=== PATIENT | male | born 1995 | race African-American/Black ===

== ENCOUNTER 2017-05-25 21:42 | Emergency (ER) | payer OTHER ==
[2017-05-25 21:43] VITALS: BP 159/92; PULSE 97; RESP 16; TEMP 98; O2SAT 99
--- NOTE | 2017-05-25 22:03 | PD ---
HPI Chief Complaint: Cold / Flu Symptoms Time Seen by Provider: 22:03 Travel History International Travel<30 days: No Contact w/Intl Traveler<30days: No Traveled to known affect area: No History of Present Illness HPI This is a 21-year-old male with no significant past medical history presents for evaluation. For the past 2 months the patient has had coughing, sneezing, congestion. Initially the symptoms resolved but now over the past month he has had consistent symptoms. Over the past week he has developed myalgias. He has tried numerous [id number] cough and cold medications, antihistamines, but symptoms persist which prompted evaluation. He reports that tonight during a particularly forceful coughing episode he had some posttussive emesis. Denies rash or recent travel. No sick contacts. Denies abdominal pain. No other complaints. [facility] Social History Alcohol Use: No Tobacco Use: No Allergies-Medications (Allergen,Severity, Reaction): Coded Allergies: No Known Allergies (Unverified , 05/25/17) Reported Meds & Prescriptions Reported Meds & Active Scripts Active Flonase Nasal [place] (Fluticasone Nasal [place]) 50 Mcg/Act [place] 100 Mcg EACH NARE BID 10 Days Azithromycin 250 Mg Tab 250 Mg PO DIRECTED Take 2 tabs (500 mg) on day 1 then 1 tab daily x 4 days. Review of Systems Except as stated in HPI: all other systems reviewed are Neg Physical Exam Narrative GENERAL: Well-nourished male in no acute distress. He is coughing and sneezing during examination. SKIN: Warm and dry. HEAD: Atraumatic. Normocephalic. EYES: Pupils equal and round. No scleral icterus. No injection or drainage. ENT: No nasal bleeding or discharge. Mucous membranes pink and moist. NECK: Trachea midline. No JVD. CARDIOVASCULAR: Regular rate and rhythm. No murmur appreciated. RESPIRATORY: No accessory muscle use. Clear to auscultation. Breath sounds equal bilaterally. GASTROINTESTINAL: Abdomen soft, non-tender, nondistended. Hepatic and splenic margins not palpable. MUSCULOSKELETAL: No obvious deformities. No clubbing. No cyanosis. No edema. NEUROLOGICAL: Awake and alert. No obvious cranial nerve deficits. Motor grossly within normal limits. Normal speech. PSYCHIATRIC: Appropriate mood and affect; insight and judgment normal. Data Data Last Documented VS Vital Signs Date Time Temp Pulse Resp B/P (MAP) Pulse Ox O2 Delivery O2 Flow Rate FiO2 05/25/17 21:43 98.0 97 16 159/92 (114) 99 Room Air Orders Orders Influenzae A/B Antigen (05/25/17 22:01) Complete Blood Count With Diff (05/25/17 22:01) Basic Metabolic Panel (Bmp) (05/25/17 22:01) Chest, Single Ap (05/25/17 ) Lidocaine Pf 2% Neb (Lidocaine Pf 2% Neb (05/25/17 22:15) Benzonatate (Tessalon) (05/25/17 22:15) Diphenhydramine (Benadryl) (05/25/17 22:15) Oxymetazoline 0.05% Melquiades [place] (Afrin 0.0 (05/25/17 22:15) Albuterol-Ipratropium Neb (Duoneb Neb) (05/25/17 22:30) Labs Laboratory Tests Test 05/25/17 22:25 White Blood Count 7.0 TH/MM3 Red Blood Count 5.25 MIL/MM3 Hemoglobin 16.2 GM/DL Hematocrit 45.5 % Mean Corpuscular Volume 86.8 FL Mean Corpuscular Hemoglobin 30.8 PG Mean Corpuscular Hemoglobin Concent 35.5 % Red Cell Distribution Width 12.7 % Platelet Count 256 TH/MM3 Mean Platelet Volume 9.1 FL Neutrophils (%) (Auto) 42.6 % Lymphocytes (%) (Auto) 41.9 % Monocytes (%) (Auto) 11.2 % Eosinophils (%) (Auto) 3.6 % Basophils (%) (Auto) 0.7 % Neutrophils # (Auto) 3.0 TH/MM3 Lymphocytes # (Auto) 3.0 TH/MM3 Monocytes # (Auto) 0.8 TH/MM3 Eosinophils # (Auto) 0.3 TH/MM3 Basophils # (Auto) 0.0 TH/MM3 CBC Comment DIFF FINAL Differential Comment Blood Urea Nitrogen 14 MG/DL Creatinine 1.28 MG/DL Random Glucose 87 MG/DL Calcium Level 9.1 MG/DL Sodium Level 139 MEQ/L Potassium Level 4.2 MEQ/L Chloride Level 106 MEQ/L Carbon Dioxide Level 24.3 MEQ/L Anion Gap 9 MEQ/L Estimat Glomerular Filtration Rate 85 ML/MIN MDM Medical Decision Making Medical Screen Exam Complete: Yes Emergency Medical Condition: Yes Medical Record Reviewed: Yes Differential Diagnosis Bronchitis, allergic rhinitis, sinusitis, pertussis, bronchiectasis, pneumonia, influenza, tuberculosis Narrative Course 21-year-old male with 2 months of cough, congestion, sneezing. On examination he is sneezing and coughing quite forcefully. He will be given a treatment of nebulized lidocaine for cough suppression purposes. He will also be given Tessalon, Afrin, Benadryl for symptom relief. Chest x-ray is normal. Influenza antigen is negative, CBC and BMP are within normal limits. Upon examination he feels improved. The patient will be discharged with prescription for Tessalon, azithromycin, Flonase. Recommended jeki-hfr-tefbzjg antihistamines on a daily basis and follow-up with primary care physician if symptoms persist. Diagnosis Primary Impression: Bronchitis Additional Impression: Rhinitis Additional Instructions: Medication as prescribed. Use ozgf-[id number] antihistamines such as Jennifer, Claritin, or Zyrtec on a daily basis. Follow-up with primary care physician in one to 2 weeks. Return for any emergent medical conditions. Med/Other Pt SpecificInfo: Prescription(s) given Scripts Benzonatate (Tessalon Perles) 100 Mg Cap 200 MG PO TID Y for COUGH, #30 CAP 0 Refills Prov: Raquel Thibodeaux MD 05/25/17 Fluticasone Nasal [place] (Flonase Nasal [place]) 50 Mcg/Act [place] 100 MCG EACH NARE BID for Allergies for 10 Days, #1 BOTTLE 0 Refills Prov: Raquel Thibodeaux MD 05/25/17 Azithromycin (Azithromycin) 250 Mg Tab 250 MG PO DIRECTED for Infection, #6 TAB 0 Refills Take 2 tabs (500 mg) on day 1 then 1 tab daily x 4 days. Prov: Raquel Thibodeaux MD 05/25/17 Disposition: 01 DISCHARGE HOME Condition: Stable Surjit Cardoza May 25, 2017 22:03
[2017-05-25] MEDS ORDERED: RESP: LIDOCAINE HCL 2% 2 ML NEB NEB ONE (22:15)
[2017-05-25] MEDS ORDERED: OXYMETAZOLINE HCL 0.05% 15 ML NASAL SPRAY NASAL ONE (22:15)
[2017-05-25] MEDS ORDERED: BENZONATATE 100 MG CAP PO ONE (22:15)
[2017-05-25] MEDS ORDERED: diphenhydrAMINE HCL 50 MG CAP PO ONE (22:15)
[2017-05-25] MEDS ORDERED: CEPH-460 PO (22:17)
[2017-05-25] MEDS ORDERED: FLUC150T PO (22:17)
[2017-05-25] MEDS ORDERED: BACT800T5 PO (22:17)
--- NOTE | 2017-05-25 22:29 | RADRPT ---
EXAM DATE/TIME: 05/25/2017 22:21 [facility] COMPARISON: No previous studies available for comparison. INDICATIONS : Cough, shortness of breath, congestion, and chest pain. MEDICAL HISTORY : None. SURGICAL HISTORY : None. ENCOUNTER: Initial ACUITY: 2 months PAIN SCORE: 8/10 LOCATION: chest FINDINGS: A single view of the chest demonstrates the lungs to be symmetrically aerated without evidence of mas s, infiltrate or effusion. The cardiomediastinal contours are unremarkable. Osseous structures are intact. CONCLUSION: 1. No acute cardiopulmonary disease. Arnol Tilley MD on May 25, 2017 at 22:27 Board Certified Radiologist. This report was verified electronically.
[2017-05-25] MEDS ORDERED: RESP: ALBUTEROL 2.5 MG/IPRATROPIUM 0.5 MG NEB (SCH) INH ONE (22:30)
[2017-05-25 22:39] LABS: BASOPHIL % 0.7 % (0.0-2.0); EOSINOPHIL # 0.3 TH/MM3 (0-0.4); EOSINOPHIL % 3.6 % (0.0-4.0); HEMATOCRIT 45.5 % (39.0-51.0); HEMOGLOBIN 16.2 GM/DL (13.0-17.0); LYMPH % 41.9 % (9.0-44.0); MEAN CELL VOLUME 86.8 FL (80.0-100.0); MEAN CORPUSCULAR HEMOGLOBIN 30.8 PG (27.0-34.0); MEAN CORPUSCULAR HGB CONC 35.5 % (32.0-36.0); MEAN PLATELET VOLUME 9.1 FL (7.0-11.0); MONO % 11.2 % (0.0-8.0); MONOCYTE # 0.8 TH/MM3 (0-0.9); NEUT % 42.6 % (16.0-70.0); PLATELET COUNT 256 TH/MM3 (150-450); RED BLOOD COUNT 5.25 MIL/MM3 (4.50-5.90); RED CELL DISTRIBUTION WIDTH 12.7 % (11.6-17.2)
[2017-05-25 23:06] LABS: BICARBONATE 24.3 MEQ/L (21.0-32.0); CALCIUM 9.1 MG/DL (8.5-10.1); CREATININE 1.28 MG/DL (0.60-1.30)
[2017-05-25] MEDS ORDERED: FLUT1SPR5 EACH NARE (23:16)
[2017-05-25] MEDS ORDERED: AZIT250T3 PO (23:16)
[2017-05-25] MEDS ORDERED: BENZ100 PO (23:16)
== END 2017-05-25 23:37 | disposition home or self-care (01) ==
LOC: NEPD 21:42
DX: J40 Bronchitis, not specified as acute or chronic (principal); J31.0 Chronic rhinitis
CPT/HCPCS: 71010; 80048; 85025; 87804; 94640; 94664; 99284; Q0163

== ENCOUNTER 2017-07-29 10:21 | Emergency (ER) | payer OTHER ==
[~2017-07-29] VITALS: Ht 175.3 cm; Wt 79.5 kg
[~2017-07-29 10:21] MED LIST: AZIT250T3 PO; BENZ100 PO; FLUT1SPR5 EACH NARE
[2017-07-29 10:27] VITALS: BP 108/92; PULSE 90; RESP 18; TEMP 99.3; O2SAT 99
[2017-07-29] MEDS ORDERED: GABA300C5 PO (11:28)
[2017-07-29] MEDS ORDERED: BUSP10TA PO (11:28)
[2017-07-29] MEDS ORDERED: ZOLO50TA PO (11:28)
[2017-07-29] MEDS ORDERED: AMLO5 PO (11:28)
[2017-07-29 11:32] LABS: BILIRUBIN, URINE NEG (NEG); BLOOD, URINE NEG (NEG); GLUCOSE,URINE NEG (NEG); KETONE, URINE NEG (NEG); MUCUS URINE FEW /lpf (OCC); NITRITE,URINE NEG (NEG); URINE COLOR YELLOW (YELLW/STRAW); URINE LEUKOCYTE ESTERASE NEG (NEG)
--- NOTE | 2017-07-29 11:50 | PD ---
HPI Chief Complaint: Complaint Time Seen by Provider: 11:34 Travel History International Travel<30 days: No Contact w/Intl Traveler<30days: No Traveled to known affect area: No History of Present Illness HPI 21-year-old -[place] male, who is a retired disabled presents emergency department with 8 month history of left breast lump which is gotten progressively worse in that time. He states no erythema, discharge, or drainage. Patient has also noted urinary dribbling at the beginning and end when he urinates. He denies dysuria or discharge. He reports symptoms of ED for the past 2 weeks. Patient states history of PTSD for which he takes multiple meds. [facility] 2 [facility] ago. He denies fever, chills, or other symptoms. He denies testicular pain. He denies risks of STD. He has no other symptoms. He has no known drug allergies. PFSH Past Medical History Bipolar Disorder: Yes Anxiety: Yes Depression: Yes Diminished Hearing: No Hypertension: Yes Medical other: Yes (sleep apnea) Immunizations Current: Yes Social History Alcohol Use: No Tobacco Use: No Substance Use: No Allergies-Medications (Allergen,Severity, Reaction): Coded Allergies: No Known Allergies (Unverified , 05/25/17) Reported Meds & Prescriptions Reported Meds & Active Scripts Active Reported Norvasc (Amlodipine Besylate) 5 Mg Tab 5 Mg PO DAILY Zoloft (Sertraline HCl) 50 Mg Tab 50 Mg PO DAILY Gabapentin 300 Mg Cap 300 Mg PO TID Buspirone (Buspirone HCl) 10 Mg Tab 10 Mg PO BID Review of Systems Except as stated in HPI: all other systems reviewed are Neg General / Constitutional: No: Fever Eyes: No: Visual changes HENT: No: Headaches Cardiovascular: No: Chest Pain or Discomfort Respiratory: No: Shortness of Breath Gastrointestinal: No: Abdominal Pain Genitourinary: No: Dysuria Musculoskeletal: No: Pain Skin: No Rash Neurologic: No: Weakness Psychiatric: No: Depression Endocrine: No: Polydipsia Hematologic/Lymphatic: No: Easy Bruising Physical Exam Narrative GENERAL: Patient appears mildly anxious but otherwise in no acute distress per SKIN: Warm and dry. Normal color. Normal turgor. No erythema. No rash. Patient has palpable mass in the left breast under the areole consistent with possible gynecomastia. HEAD: Atraumatic. Normocephalic. EYES: Pupils equal and round. No scleral icterus. No injection or drainage. ENT: No nasal bleeding or discharge. Mucous membranes pink and moist. Pharynx is clear. Airway is patent. NECK: Trachea midline. Supple and nontender without palpable thyroid or lymphadenopathy. CARDIOVASCULAR: Regular rate and rhythm. RESPIRATORY: No accessory muscle use. Clear to auscultation. Breath sounds equal bilaterally. GASTROINTESTINAL: Abdomen soft, non-tender, nondistended. Hepatic and splenic margins not palpable. MUSCULOSKELETAL: Extremities without clubbing, cyanosis, or edema. No obvious deformities. NEUROLOGICAL: Awake and alert. No obvious cranial nerve deficits. Motor grossly within normal limits. Five out of 5 muscle strength in the arms and legs. Normal speech. PSYCHIATRIC: Appropriate mood and affect; insight and judgment normal. Data Data Last Documented VS Vital Signs Date Time Temp Pulse Resp B/P (MAP) Pulse Ox O2 Delivery O2 Flow Rate FiO2 07/29/17 10:27 99.3 90 18 108/92 (97) 99 Orders Orders Urinalysis - C+S If Indicated (07/29/17 10:29) Us Breast Unilateral (07/29/17 ) Labs Laboratory Tests Test 07/29/17 10:30 Urine Color YELLOW Urine Turbidity CLEAR Urine pH 6.0 Urine Specific Helen 1.021 Urine Protein NEG mg/dL Urine Glucose (UA) NEG mg/dL Urine Ketones NEG mg/dL Urine Occult Blood NEG Urine Nitrite NEG Urine Bilirubin NEG Urine Urobilinogen LESS THAN 2.0 MG/DL Urine Leukocyte Esterase NEG Urine RBC 1 /hpf Urine WBC LESS THAN 1 /hpf Urine Mucus FEW /lpf Microscopic Urinalysis Comment CULT NOT INDICATED MDM Medical Decision Making Medical Screen Exam Complete: Yes Emergency Medical Condition: Yes Differential Diagnosis Gynecomastia. Erectile dysfunction. Urinary tract infection. Medication reaction. History of PTSD Narrative Course Patient is medically stable at time of exam. Ultrasound of the left breast is ordered. Urinalysis is ordered. Urinalysis is completely normal without signs of infection. Ultrasound left breast shows no signs of abscess or other acute lesion per radiologist Patient is felt to have gynecomastia perhaps from some of his psychiatric meds. Recommend the patient follow with the [place] clinic for further evaluation and treatment and possible change of meds. Diagnosis Primary Impression: Gynecomastia, male Additional Impression: Erectile dysfunction Qualified Codes: N52.2 - Drug-induced erectile dysfunction Referrals: [place] [facility] Patient Instructions: General Instructions Additional Instructions: Urinalysis is completely normal without signs of infection. Ultrasound left breast shows no signs of abscess or other acute lesion per radiologist Patient is felt to have gynecomastia perhaps from some of his psychiatric meds. Recommend the patient follow with the [place] clinic for further evaluation and treatment and possible change of meds. Med/Other Pt SpecificInfo: No Change to Meds, No Meds Exist/No RX given Disposition: 01 DISCHARGE HOME Condition: Stable Kirill Davis Jul 29, 2017 11:50
--- NOTE | 2017-07-29 12:34 | RADRPT ---
EXAM DATE/TIME: 07/29/2017 12:12 [facility] COMPARISON: No previous studies available for comparison. INDICATIONS : Left breast swelling. MEDICAL HISTORY : Hypertension. Bipolar disorder. Depression. Anxiety. Sleep apnea. SURGICAL HISTORY : Right hip surgery. ENCOUNTER: Initial ACUITY: 4-6 months PAIN SCORE: 2/10 LOCATION: Left breast. FINDINGS: In the area of left breast swelling no mass, fluid collection or significant edematous changes identi fied. CONCLUSION: 1. No focal sonographic abnormalities identified in the left breast in the area of swelling. Chilango Munroe MD on July 29, 2017 at 12:31 Board Certified Radiologist. This report was verified electronically.
== END 2017-07-29 13:43 | disposition home or self-care (01) ==
LOC: NEPD 10:21
DX: N62 Hypertrophy of breast (principal); N52.2 Drug-induced erectile dysfunction; F31.9 Bipolar disorder, unspecified; I10 Essential (primary) hypertension
CPT/HCPCS: 76642; 81001